=== PATIENT | female | born 1940 | race Caucasian/White ===

== ENCOUNTER 2017-05-17 22:37 | Inpatient (IN) | payer MEDICARE ==
[~2017-05-17] VITALS: Ht 165.1 cm; Wt 42.1 kg
[2017-05-18 00:13] LABS: BASOPHILS % (AUTO) 1.2 % (0.0-2.0); EOSINOPHILS % (AUTO) 1.9 % (1.0-6.0); HEMOGLOBIN 11.5 g/dL (12.0-16.0); LYMPHOCYTES # (AUTO) 1.1 K/uL (1.0-4.8); LYMPHOCYTES % (AUTO) 11.9 % (22.0-44.0); MEAN CORPUSCULAR HEMOGLOBIN 30.9 pg (26.0-34.0); MEAN CORPUSCULAR HGB CONC 33.7 G/dL (31.0-37.0); MEAN CORPUSCULAR VOLUME 92 fL (80-100); MONOCYTES # (AUTO) 0.9 K/uL (0.1-1.0); MONOCYTES % (AUTO) 9.6 % (2.0-9.0); NEUTROPHILS # (AUTO) 6.8 K/uL (1.8-7.7); NEUTROPHILS % (AUTO) 75.4 % (40.0-70.0); PLATELET COUNT (AUTO) 267 K/uL (150-450); RED CELL DISTRIBUTION WIDTH 13.1 % (11.5-14.5); WHITE BLOOD COUNT (AUTO) 9.1 K/uL (4.5-11.0)
[2017-05-18 00:21] LABS: ANION GAP 8 mmol/L (8-16); CALCIUM, TOTAL 9.8 mg/dL (8.8-10.5); CARBON DIOXIDE 29 mmol/L (22-29); CHLORIDE 101 mmol/L (98-107); CREATININE 1.22 mg/dL (0.60-1.30); GLOMERULAR FILTR. RATE CALC 43 mL/min (>60); POTASSIUM 3.9 mmol/L (3.5-5.1); SODIUM SERUM 138 mmol/L (136-145); UREA NITROGEN, BLOOD 24 mg/dL (7-18)
[2017-05-18 00:27] LABS: ALANINE AMINOTRANSFERASE 20 U/L (12-78); ALBUMIN 3.9 g/dL (3.4-5.0); ASPARTATE AMINOTRANSFERASE 20 U/L (15-37); BILIRUBIN,TOTAL 0.3 mg/dL (0.1-1.0); TOTAL PROTEIN, SERUM 7.6 g/dL (6.4-8.2)
[2017-05-18 02:12] LABS: APPEARANCE,URINE CLEAR (CLEAR); GLUCOSE, URINE (UA) NEGATIVE (NEGATIVE); KETONES,URINE NEGATIVE (NEGATIVE); LEUKOCYTE ESTERASE ,URINE SMALL (NEGATIVE); OCCULT BLOOD,URINE NEGATIVE (NEGATIVE); PROTEIN,URINE POS 1+ (NEGATIVE)
[2017-05-18 02:15] LABS: ADD UA MICROSCOPIC YES
[2017-05-18 02:26] LABS: RBC,URINE 0-2 /HPF (0-2); SQUAMOUS EPITHELIAL CELL,UR Rare /LPF (None Seen)
[2017-05-18] MEDS ORDERED: ACETAMINOPHEN 325 MG TABLET PO PRN ×2 (05:00→06:00)
[2017-05-18] MEDS ORDERED: 0.9% SODIUM CHLORIDE 10 ML SYRINGE IVP PRN (05:00)
[2017-05-18] MEDS ORDERED: ONDANSETRON HCL 4 MG/2 ML VIAL IVP PRN (05:00)
[2017-05-18] MEDS ORDERED: HYDROCODONE/ACETAMINOPHEN 5-325 MG TABLET PO PRN (06:00)
[2017-05-18] MEDS ORDERED: SODIUM CHLORIDE 0.45% 1,000 ML IV SCH (06:00)
[2017-05-18 06:42] VITALS: BP 149/77
[2017-05-18] MEDS ORDERED: ENALAPRILAT DIHYDRATE 1.25 MG/ML VIAL IVP PRN (06:45)
[2017-05-18] MEDS ORDERED: PANTOPRAZOLE SODIUM 40 MG/VIAL IVP SCH (09:00)
[2017-05-18 10:11] LABS: VITAMIN B12 LEVEL 312 pg/mL (211-911)
[2017-05-18 11:30] VITALS: BP 159/71
[2017-05-18] MEDS: AmLODIPine BESYLATE 5 MG TABLET PO SCH (15:33)
[2017-05-18] MEDS: MULTIVITAMINS WITH MINERALS, THERAPEUTIC TABLET PO SCH (15:33)
[2017-05-18 16:00] VITALS: BP 145/62
[2017-05-18] MEDS ORDERED: TUBERCULIN, PURIFIED PROTEIN DERIVATIVE 5 TU/0.1 ML SYG ID ONE (17:15)
[2017-05-18] MEDS ORDERED: INFLUENZA VIRUS VACCINE QVS 2017-18 (3YR+)/PF 60 MCG/0.5 ML SYRINGE IM ONE (17:45)
[2017-05-18 19:58] VITALS: BP 134/63
[2017-05-18] MEDS: HEPARIN SODIUM,PORCINE 5,000 UNITS/ML VIAL SQ SCH (20:34)
[2017-05-19] VITALS (7 sets, daily range): BP systolic 113–145; BP diastolic 54–69
[2017-05-19] MEDS: ASPIRIN 81 MG CHEWABLE TABLET PO SCH (08:24)
[2017-05-19] MEDS: PANTOPRAZOLE SODIUM 40 MG DR TABLET PO SCH (08:24)
[2017-05-19] MEDS: AmLODIPine BESYLATE 5 MG TABLET PO SCH (08:24)
[2017-05-19] MEDS: HEPARIN SODIUM,PORCINE 5,000 UNITS/ML VIAL SQ SCH ×2 (08:24→21:00)
[2017-05-19] MEDS: MULTIVITAMINS WITH MINERALS, THERAPEUTIC TABLET PO SCH (08:24)
[2017-05-20 04:57] VITALS: BP 126/63
[2017-05-20 07:41] VITALS: BP 145/68
[2017-05-20] MEDS: ASPIRIN 81 MG CHEWABLE TABLET PO SCH (08:20)
[2017-05-20] MEDS: AmLODIPine BESYLATE 5 MG TABLET PO SCH (08:20)
[2017-05-20] MEDS: MULTIVITAMINS WITH MINERALS, THERAPEUTIC TABLET PO SCH (08:20)
[2017-05-20] MEDS: HEPARIN SODIUM,PORCINE 5,000 UNITS/ML VIAL SQ SCH ×3 (08:20→20:56)
[2017-05-20] MEDS: PANTOPRAZOLE SODIUM 40 MG DR TABLET PO SCH (08:20)
[2017-05-20 11:12] VITALS: BP 128/65
[2017-05-20 15:39] VITALS: BP 128/59
[2017-05-20 19:12] VITALS: BP 123/62
[2017-05-21] VITALS (7 sets, daily range): BP systolic 122–137; BP diastolic 63–77
[2017-05-21] MEDS: AmLODIPine BESYLATE 5 MG TABLET PO SCH (08:38)
[2017-05-21] MEDS: ASPIRIN 81 MG CHEWABLE TABLET PO SCH (08:38)
[2017-05-21] MEDS: MULTIVITAMINS WITH MINERALS, THERAPEUTIC TABLET PO SCH (08:38)
[2017-05-21] MEDS: PANTOPRAZOLE SODIUM 40 MG DR TABLET PO SCH (08:38)
[2017-05-21] MEDS: HEPARIN SODIUM,PORCINE 5,000 UNITS/ML VIAL SQ SCH ×2 (08:38→20:39)
[2017-05-22 04:03] VITALS: BP 147/69
[2017-05-22 07:45] VITALS: BP 131/66
[2017-05-22] MEDS: MULTIVITAMINS WITH MINERALS, THERAPEUTIC TABLET PO SCH (09:21)
[2017-05-22] MEDS: PANTOPRAZOLE SODIUM 40 MG DR TABLET PO SCH (09:21)
[2017-05-22] MEDS: AmLODIPine BESYLATE 5 MG TABLET PO SCH (09:21)
[2017-05-22] MEDS: HEPARIN SODIUM,PORCINE 5,000 UNITS/ML VIAL SQ SCH ×2 (09:22→21:00)
[2017-05-22] MEDS: ASPIRIN 81 MG CHEWABLE TABLET PO SCH (09:22)
[2017-05-22 11:50] VITALS: BP 129/63
[2017-05-22 17:11] VITALS: BP 144/63
[2017-05-22 19:30] VITALS: BP 148/78
[2017-05-23 00:05] VITALS: BP 145/74
[2017-05-23 05:45] VITALS: BP 159/82
[2017-05-23 07:38] VITALS: BP 179/81
[2017-05-23] MEDS: AmLODIPine BESYLATE 5 MG TABLET PO SCH (08:10)
[2017-05-23] MEDS: PANTOPRAZOLE SODIUM 40 MG DR TABLET PO SCH (08:10)
[2017-05-23] MEDS: HEPARIN SODIUM,PORCINE 5,000 UNITS/ML VIAL SQ SCH ×2 (08:11→19:47)
[2017-05-23] MEDS: MULTIVITAMINS WITH MINERALS, THERAPEUTIC TABLET PO SCH (08:11)
[2017-05-23] MEDS: ASPIRIN 81 MG CHEWABLE TABLET PO SCH (08:11)
[2017-05-23 11:58] VITALS: BP 144/76
[2017-05-23 15:08] VITALS: BP 149/88
[2017-05-23 19:57] VITALS: BP 160/96
[2017-05-24 05:12] VITALS: BP 128/58
[2017-05-24 05:45] LABS: BASOPHILS # (AUTO) 0.13 K/uL (0.00-0.20); BASOPHILS % (AUTO) 1.5 % (0.0-2.0); EOSINOPHILS # (AUTO) 0.19 K/uL (0.00-0.70); EOSINOPHILS % (AUTO) 2.19 % (1.0-6.0); HEMATOCRIT 34.3 % (36-46); HEMOGLOBIN 11.7 g/dL (12.0-16.0); LYMPHOCYTES # (AUTO) 1.3 K/uL (1.0-4.8); LYMPHOCYTES % (AUTO) 15.6 % (22.0-44.0); MEAN CORPUSCULAR HEMOGLOBIN 31.1 pg (26.0-34.0); MEAN CORPUSCULAR HGB CONC 34.2 G/dL (31.0-37.0); MEAN CORPUSCULAR VOLUME 91 fL (80-100); MONOCYTES # (AUTO) 0.7 K/uL (0.1-1.0); MONOCYTES % (AUTO) 7.7 % (2.0-9.0); NEUTROPHILS # (AUTO) 6.2 K/uL (1.8-7.7); NEUTROPHILS % (AUTO) 72.9 % (40.0-70.0); PLATELET COUNT (AUTO) 251 K/uL (150-450); RED BLOOD CELL COUNT(AUTO) 3.77 MIL/uL (4.00-5.20); RED CELL DISTRIBUTION WIDTH 13.2 % (11.5-14.5); WHITE BLOOD COUNT (AUTO) 8.5 K/uL (4.5-11.0)
[2017-05-24 05:49] LABS: CALCIUM, TOTAL 9.5 mg/dL (8.8-10.5); CREATININE 1.22 mg/dL (0.60-1.30); POTASSIUM 4.2 mmol/L (3.5-5.1)
[2017-05-24] MEDS: HEPARIN SODIUM,PORCINE 5,000 UNITS/ML VIAL SQ SCH ×2 (08:01→20:00)
[2017-05-24] MEDS: MULTIVITAMINS WITH MINERALS, THERAPEUTIC TABLET PO SCH (08:01)
[2017-05-24] MEDS: PANTOPRAZOLE SODIUM 40 MG DR TABLET PO SCH (08:01)
[2017-05-24] MEDS: AmLODIPine BESYLATE 5 MG TABLET PO SCH (08:01)
[2017-05-24] MEDS: ASPIRIN 81 MG CHEWABLE TABLET PO SCH (08:01)
[2017-05-24 08:12] VITALS: BP 136/111
[2017-05-24 13:05] VITALS: BP 134/64
[2017-05-24 15:25] VITALS: BP 137/70
[2017-05-24 19:58] VITALS: BP 130/60
[2017-05-24 23:50] VITALS: BP 128/59
[2017-05-25 05:09] VITALS: BP 135/69
[2017-05-25 07:45] VITALS: BP 135/65
[2017-05-25] MEDS: PANTOPRAZOLE SODIUM 40 MG DR TABLET PO SCH (08:21)
[2017-05-25] MEDS: AmLODIPine BESYLATE 5 MG TABLET PO SCH (08:21)
[2017-05-25] MEDS: MULTIVITAMINS WITH MINERALS, THERAPEUTIC TABLET PO SCH (08:21)
[2017-05-25] MEDS: ASPIRIN 81 MG CHEWABLE TABLET PO SCH (08:22)
[2017-05-25] MEDS: HEPARIN SODIUM,PORCINE 5,000 UNITS/ML VIAL SQ SCH ×2 (08:22→20:19)
[2017-05-25 11:18] VITALS: BP 136/68
[2017-05-25 15:36] VITALS: BP 112/57
[2017-05-25 19:10] VITALS: BP 136/71
[2017-05-25] MEDS: MEMANTINE HCL 5 MG TABLET PO SCH (20:19)
[2017-05-25] MEDS: DONEPEZIL HCL 5 MG TABLET PO SCH (20:19)
[2017-05-25 23:58] VITALS: BP 111/56
[2017-05-26 05:36] VITALS: BP 140/75
[2017-05-26 07:33] VITALS: BP 123/66
[2017-05-26] MEDS: MEMANTINE HCL 5 MG TABLET PO SCH ×2 (08:10→20:17)
[2017-05-26] MEDS: AmLODIPine BESYLATE 5 MG TABLET PO SCH (08:10)
[2017-05-26] MEDS: MULTIVITAMINS WITH MINERALS, THERAPEUTIC TABLET PO SCH (08:10)
[2017-05-26] MEDS: PANTOPRAZOLE SODIUM 40 MG DR TABLET PO SCH (08:10)
[2017-05-26] MEDS: ASPIRIN 81 MG CHEWABLE TABLET PO SCH (08:11)
[2017-05-26] MEDS: HEPARIN SODIUM,PORCINE 5,000 UNITS/ML VIAL SQ SCH ×2 (08:11→20:16)
[2017-05-26 11:37] VITALS: BP 111/59
[2017-05-26 15:20] VITALS: BP 133/67
[2017-05-26 19:30] VITALS: BP 115/51
[2017-05-26] MEDS: DONEPEZIL HCL 5 MG TABLET PO SCH (20:17)
[2017-05-26 23:13] VITALS: BP 121/62
[2017-05-27 03:15] VITALS: BP 131/60
[2017-05-27 07:39] VITALS: BP 127/69
[2017-05-27] MEDS: MULTIVITAMINS WITH MINERALS, THERAPEUTIC TABLET PO SCH (09:00)
[2017-05-27] MEDS: MEMANTINE HCL 5 MG TABLET PO SCH ×2 (09:00→20:53)
[2017-05-27] MEDS: HEPARIN SODIUM,PORCINE 5,000 UNITS/ML VIAL SQ SCH ×2 (09:00→20:53)
[2017-05-27] MEDS: PANTOPRAZOLE SODIUM 40 MG DR TABLET PO SCH (09:00)
[2017-05-27] MEDS: AmLODIPine BESYLATE 5 MG TABLET PO SCH (09:00)
[2017-05-27] MEDS: ASPIRIN 81 MG CHEWABLE TABLET PO SCH (09:00)
[2017-05-27 11:24] VITALS: BP 120/60
[2017-05-27 15:48] VITALS: BP 128/61
[2017-05-27 20:00] VITALS: BP 108/62
[2017-05-27] MEDS: DONEPEZIL HCL 5 MG TABLET PO SCH (20:53)
[2017-05-28] VITALS: BP 105/61
[2017-05-28 04:00] VITALS: BP 121/72
[2017-05-28] MEDS: PANTOPRAZOLE SODIUM 40 MG DR TABLET PO SCH (07:52)
[2017-05-28] MEDS: AmLODIPine BESYLATE 5 MG TABLET PO SCH (07:52)
[2017-05-28] MEDS: MULTIVITAMINS WITH MINERALS, THERAPEUTIC TABLET PO SCH (07:52)
[2017-05-28 07:55] VITALS: BP 146/81
[2017-05-28] MEDS: ASPIRIN 81 MG CHEWABLE TABLET PO SCH (07:55)
[2017-05-28] MEDS: HEPARIN SODIUM,PORCINE 5,000 UNITS/ML VIAL SQ SCH (07:56)
[2017-05-28] MEDS: MEMANTINE HCL 5 MG TABLET PO SCH (07:56)
[2017-05-28 11:35] VITALS: BP 127/66
== END 2017-05-28 14:18 | disposition home or self-care (01) | DRG 884 ==
LOC: EMS 22:40 → 6N 05-18 05:12
PROVIDERS: ADMIT Hospitalist; ATTEND Hospitalist
DX: F03.90 Unspecified dementia, unspecified severity, without behavioral disturbance, psychotic disturbance, mood disturbance, and anxiety (principal); E43 Unspecified severe protein-calorie malnutrition; N17.9 Acute kidney failure, unspecified; D64.9 Anemia, unspecified; E86.0 Dehydration; R62.7 Adult failure to thrive; I10 Essential (primary) hypertension; Z91.83 Wandering in diseases classified elsewhere; Z28.21 Immunization not carried out because of patient refusal
CPT/HCPCS: 70450; 82607; 82746; 84134; 84443; 97116; 97161; 97530; 99285; C9113; G0480; J1644

== ENCOUNTER 2017-07-12 15:36 | Inpatient (IN) | payer MEDICARE ==
[~2017-07-12] VITALS: Ht 160 cm; Wt 42.0 kg
[2017-07-12 15:57] LABS: GLUCOSE,POINT OF CARE 97 MG/DL (70-110)
[2017-07-12] MEDS ORDERED: SODIUM CHLORIDE 0.9% 1,000 ML IV ONE ×2 (16:00→19:30)
[2017-07-12 16:34] LABS: BASOPHILS # (AUTO) 0.03 K/uL (0.00-0.20); BASOPHILS % (AUTO) 0.3 % (0.0-2.0); EOSINOPHILS # (AUTO) 0.06 K/uL (0.00-0.70); EOSINOPHILS % (AUTO) 0.61 % (1.0-6.0); HEMATOCRIT 36.7 % (36-46); HEMOGLOBIN 12.4 g/dL (12.0-16.0); LYMPHOCYTES % (AUTO) 10.6 % (22.0-44.0); MEAN CORPUSCULAR HEMOGLOBIN 30.5 pg (26.0-34.0); MEAN CORPUSCULAR HGB CONC 33.8 G/dL (31.0-37.0); MEAN CORPUSCULAR VOLUME 90 fL (80-100); MONOCYTES # (AUTO) 0.8 K/uL (0.1-1.0); MONOCYTES % (AUTO) 8.6 % (2.0-9.0); NEUTROPHILS # (AUTO) 7.7 K/uL (1.8-7.7); NEUTROPHILS % (AUTO) 79.9 % (40.0-70.0); PLATELET COUNT (AUTO) 369 K/uL (150-450); RED BLOOD CELL COUNT(AUTO) 4.06 MIL/uL (4.00-5.20); RED CELL DISTRIBUTION WIDTH 14.4 % (11.5-14.5); WHITE BLOOD COUNT (AUTO) 9.7 K/uL (4.5-11.0)
[2017-07-12 16:41] LABS: APPEARANCE,URINE TURBID (CLEAR); GLUCOSE, URINE (UA) NEGATIVE (NEGATIVE); KETONES,URINE 15 mg/dL (NEGATIVE); LEUKOCYTE ESTERASE ,URINE LARGE (NEGATIVE); OCCULT BLOOD,URINE MODERATE (NEGATIVE); PROTEIN,URINE SEE CONFIRM (NEGATIVE)
[2017-07-12 16:42] LABS: ANION GAP 9 mmol/L (8-16); CALCIUM, TOTAL 9.8 mg/dL (8.8-10.5); CARBON DIOXIDE 28 mmol/L (22-29); CHLORIDE 96 mmol/L (98-107); CREATININE 1.13 mg/dL (0.60-1.30); GLOMERULAR FILTR. RATE CALC 47 mL/min (>60); POTASSIUM 3.6 mmol/L (3.5-5.1); SODIUM SERUM 133 mmol/L (136-145); UREA NITROGEN, BLOOD 34 mg/dL (7-18)
[2017-07-12 16:42] LABS: ADD UA MICROSCOPIC YES
[2017-07-12 16:47] LABS: SQUAMOUS EPITHELIAL CELL,UR Few /LPF (None Seen); SULFOSALICYLIC ACID,URINE 2+ (Negative); WBC,URINE 51-100 /HPF (0-5)
[2017-07-12 17:07] LABS: ALANINE AMINOTRANSFERASE 31 U/L (12-78); ALBUMIN 3.4 g/dL (3.4-5.0); ASPARTATE AMINOTRANSFERASE 27 U/L (15-37); CREATINE KINASE MB 1.5 ng/mL (0-5); CREATINE KINASE, TOTAL 164 U/L (26-192); TOTAL PROTEIN, SERUM 7.6 g/dL (6.4-8.2)
[2017-07-12] MEDS ORDERED: CefTRIAXone 1 GM/DEXTROSE 50 ML IV ONE (17:30)
[2017-07-12] MEDS ORDERED: ACETAMINOPHEN 325 MG TABLET PO PRN (19:30)
[2017-07-12] MEDS ORDERED: ONDANSETRON HCL 4 MG/2 ML VIAL IVP PRN (19:30)
[2017-07-12 21:19] VITALS: BP 154/70
[2017-07-12] MEDS: DEXTROSE 5%-0.45% SODIUM CHL 1,000 ML IV SCH (22:25)
[2017-07-12 23:35] VITALS: BP 144/75
[2017-07-13 05:41] VITALS: BP 129/73
[2017-07-13 07:45] LABS: BASOPHILS # (AUTO) 0.02 K/uL (0.00-0.20); BASOPHILS % (AUTO) 0.2 % (0.0-2.0); EOSINOPHILS # (AUTO) 0.15 K/uL (0.00-0.70); EOSINOPHILS % (AUTO) 1.47 % (1.0-6.0); HEMATOCRIT 34.9 % (36-46); HEMOGLOBIN 11.8 g/dL (12.0-16.0); LYMPHOCYTES # (AUTO) 0.7 K/uL (1.0-4.8); LYMPHOCYTES % (AUTO) 7.3 % (22.0-44.0); MEAN CORPUSCULAR HEMOGLOBIN 30.5 pg (26.0-34.0); MEAN CORPUSCULAR HGB CONC 33.7 G/dL (31.0-37.0); MEAN CORPUSCULAR VOLUME 91 fL (80-100); MONOCYTES # (AUTO) 0.8 K/uL (0.1-1.0); MONOCYTES % (AUTO) 7.5 % (2.0-9.0); NEUTROPHILS # (AUTO) 8.4 K/uL (1.8-7.7); NEUTROPHILS % (AUTO) 83.6 % (40.0-70.0); PLATELET COUNT (AUTO) 324 K/uL (150-450); RED BLOOD CELL COUNT(AUTO) 3.86 MIL/uL (4.00-5.20); RED CELL DISTRIBUTION WIDTH 14.4 % (11.5-14.5); WHITE BLOOD COUNT (AUTO) 10.1 K/uL (4.5-11.0)
[2017-07-13 07:55] LABS: ANION GAP 8 mmol/L (8-16); CALCIUM, TOTAL 8.9 mg/dL (8.8-10.5); CARBON DIOXIDE 27 mmol/L (22-29); CHLORIDE 98 mmol/L (98-107); CREATININE 0.83 mg/dL (0.60-1.30); GLOMERULAR FILTR. RATE CALC > 60 mL/min (>60); POTASSIUM 3.4 mmol/L (3.5-5.1); SODIUM SERUM 133 mmol/L (136-145); UREA NITROGEN, BLOOD 22 mg/dL (7-18)
[2017-07-13 08:20] VITALS: BP 154/80
[2017-07-13] MEDS: AmLODIPine BESYLATE 5 MG TABLET PO SCH (09:35)
[2017-07-13] MEDS: MEMANTINE HCL 5 MG TABLET PO SCH ×2 (09:35→20:05)
[2017-07-13] MEDS: ASPIRIN 81 MG CHEWABLE TABLET PO SCH (09:35)
[2017-07-13] MEDS: DEXTROSE 5%-0.45% SODIUM CHL 1,000 ML IV SCH (09:36)
[2017-07-13] MEDS: CefTRIAXone 1 GM/DEXTROSE 50 ML IV SCH (17:24)
[2017-07-13] MEDS ORDERED: CefTRIAXone SODIUM 1 GM/VIAL IM SCH (17:30)
[2017-07-13] MEDS ORDERED: CefTRIAXone SODIUM 1 GM/VIAL IV SCH (17:30)
[2017-07-13 20:05] VITALS: BP 143/67
[2017-07-13] MEDS: DONEPEZIL HCL 5 MG TABLET PO SCH (20:05)
[2017-07-13 21:34] VITALS: BP 150/68
[2017-07-14] VITALS (7 sets, daily range): BP systolic 132–161; BP diastolic 64–81
[2017-07-14] MEDS: DEXTROSE 5%-0.45% SODIUM CHL 1,000 ML IV SCH ×2 (03:07→15:57)
[2017-07-14] MEDS: AmLODIPine BESYLATE 5 MG TABLET PO SCH (08:32)
[2017-07-14] MEDS: MULTIVITAMINS WITH MINERALS, THERAPEUTIC TABLET PO SCH (08:32)
[2017-07-14] MEDS: MEMANTINE HCL 5 MG TABLET PO SCH ×2 (08:32→19:47)
[2017-07-14] MEDS: ASPIRIN 81 MG CHEWABLE TABLET PO SCH (08:33)
[2017-07-14] MEDS: CefTRIAXone 1 GM/DEXTROSE 50 ML IV SCH (15:58)
[2017-07-14] MEDS: DONEPEZIL HCL 5 MG TABLET PO SCH (19:47)
[2017-07-15] MEDS: DEXTROSE 5%-0.45% SODIUM CHL 1,000 ML IV SCH ×2 (01:59→11:56)
[2017-07-15 04:17] VITALS: BP 146/62
[2017-07-15 08:21] VITALS: BP 147/94
[2017-07-15] MEDS: MULTIVITAMINS WITH MINERALS, THERAPEUTIC TABLET PO SCH (08:40)
[2017-07-15] MEDS: AmLODIPine BESYLATE 5 MG TABLET PO SCH (08:41)
[2017-07-15] MEDS: ASPIRIN 81 MG CHEWABLE TABLET PO SCH (08:41)
[2017-07-15] MEDS: MEMANTINE HCL 5 MG TABLET PO SCH ×2 (08:41→20:34)
[2017-07-15 11:40] VITALS: BP 159/93
[2017-07-15 15:10] VITALS: BP 135/87
[2017-07-15] MEDS: CefTRIAXone 1 GM/DEXTROSE 50 ML IV SCH (17:54)
[2017-07-15] MEDS ORDERED: MINOCYCLINE HCL 100 MG CAPSULE PO ONE (20:00)
[2017-07-15] MEDS: DONEPEZIL HCL 5 MG TABLET PO SCH (20:34)
[2017-07-15] MEDS ORDERED: MINOCYCLINE HCL 50 MG CAPSULE PO ONE (21:00)
[2017-07-15 21:17] VITALS: BP 163/92
[2017-07-15 23:56] VITALS: BP 148/82
[2017-07-16] MEDS ORDERED: MAGNESIUM SULFATE 2 GM in DEXTROSE 5%-WATER 50 ML IV ONE ×2
[2017-07-16] MEDS: DEXTROSE 5%-0.45% SODIUM CHL 1,000 ML IV SCH (00:20)
[2017-07-16 05:17] VITALS: BP 128/83
[2017-07-16] MEDS ORDERED: MINOCYCLINE HCL 100 MG CAPSULE PO SCH (08:00)
[2017-07-16 08:06] VITALS: BP 135/82
[2017-07-16] MEDS: AmLODIPine BESYLATE 5 MG TABLET PO SCH (08:22)
[2017-07-16] MEDS: MULTIVITAMINS WITH MINERALS, THERAPEUTIC TABLET PO SCH (08:23)
[2017-07-16] MEDS: MEMANTINE HCL 5 MG TABLET PO SCH (08:23)
[2017-07-16] MEDS: ASPIRIN 81 MG CHEWABLE TABLET PO SCH (08:23)
[2017-07-16 11:41] VITALS: BP 145/72
[2017-07-16 16:12] VITALS: BP 146/62
[2017-07-16] MEDS ORDERED: INFLUENZA VIRUS VACCINE QVS 2017-18 (3YR+)/PF 60 MCG/0.5 ML SYRINGE IM ONE (16:30)
[2017-07-16] MEDS ORDERED: ASPI81 PO (17:39)
[2017-07-16] MEDS ORDERED: AMLO-511 PO (17:39)
[2017-07-16] MEDS ORDERED: MEMA5 PO (17:40)
[2017-07-16] MEDS ORDERED: DONE5TAB5 PO (17:40)
[2017-07-16] MEDS ORDERED: MINO50CA36 PO (17:41)
[2017-07-16] MEDS ORDERED: MULT1CAP32 PO (17:44)
== END 2017-07-16 18:00 | DRG 872 ==
LOC: EMS 15:36 → 6N 19:36
PROVIDERS: ADMIT Internal Medicine; ATTEND Internal Medicine
DX: A41.9 Sepsis, unspecified organism (principal); E44.0 Moderate protein-calorie malnutrition; F03.90 Unspecified dementia, unspecified severity, without behavioral disturbance, psychotic disturbance, mood disturbance, and anxiety; N39.0 Urinary tract infection, site not specified; Z68.1 Body mass index [BMI] 19.9 or less, adult; B96.20 Unspecified Escherichia coli [E. coli] as the cause of diseases classified elsewhere; I10 Essential (primary) hypertension; R04.0 Epistaxis; R62.7 Adult failure to thrive
CPT/HCPCS: 51701; 82962; 83735; 87040; 87086; 93005; 96361; 96365; 97161; 97167; 97530; 99285; J0696; J3475; J7030; J7060

== ENCOUNTER 2017-10-17 10:10 | Emergency (ER) | payer MEDICARE ==
[~2017-10-17] VITALS: Ht 167.6 cm; Wt 54.0 kg
[~2017-10-17 10:10] MED LIST: AMLO-511 PO; ASPI81 PO; DONE5TAB5 PO; MEMA5 PO; MINO50CA36 PO; MULT1CAP32 PO
[2017-10-17 10:28] LABS: GLUCOSE,POINT OF CARE 111 MG/DL (70-110)
[2017-10-17 13:58] VITALS: BP 155/87
== END 2017-10-17 14:23 | disposition home or self-care (01) ==
LOC: EMS 10:11
DX: S00.83XA Contusion of other part of head, initial encounter (principal); F03.90 Unspecified dementia, unspecified severity, without behavioral disturbance, psychotic disturbance, mood disturbance, and anxiety; W06.XXXA Fall from bed, initial encounter; Y93.89 Activity, other specified; Y92.89 Other specified places as the place of occurrence of the external cause; Y99.8 Other external cause status
CPT/HCPCS: 70450; 82962; 99284